=== PATIENT | female | born 1975 | race Caucasian/White ===

== ENCOUNTER 2017-12-10 23:17 | Emergency (ER) | payer MEDICAID ==
--- NOTE | 2017-12-10 23:34 | ED Physician Chart ---
ED Chief Complaint/HPI - Patient Information Date Seen:: 12/10/17 Time Seen:: 23:33 Chief Complaint:: Righ first toe pain History of Present Illness:: 42 yo female had right first toe deformity at the MTP joint for 3 months, right first toe pain due to hyperextension injury for 1 month. 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 Allergies:: Allergies Allergy/AdvReac Type Severity Reaction Status Date / Time No Known Allergies Allergy Verified 01/06/16 17:59 Vitals:: Vital Signs - 8 hr 12/10/17 23:20 Temp 97.9 F HR 88 RR 18 BP 140/90 O2 Sat % 98 ED Review of Systems - Review of Systems General/Constitutional: No fever Skin: No rash Head: No headache Eyes: No pain ENT: No earache Neck: No neck pain Cardio Vascular: No chest pain Pulmonary: No SOB GI: No nausea, No vomiting Musculoskeletal: Bone or joint pain Neurological: No focal symptoms ED Past Medical History - Past Medical History Past Medical History: HTN, DM Social History: Non Smoker, No Alcohol, No Drug Use Surgical History: None Family Medical History - Family Member Mother History Unknown: Yes ED Physical Exam - Physical Examination General/Constitutional: Awake, Alert Head: Atraumatic Eyes: PERRL Skin: No ecchymosis ENMT: Nasal exam nl Neck: No nuchal rigidity Respiratory: Clear to Auscultation Cardio Vascular: RRR, No murmur, gallop, rubs, NL S1 S2 GI: No tenderness/rebounding/guarding Other Extremities comments:: mild to moderate hallux valgus of the first MTP joint. Neuro/Psych: No focal deficits ED Labs/Radiology/EKG Results - Lab Results Results: Laboratory Last Values WBC 9.0 Th/cmm (4.8-10.8) 12/10/17 00:05 RBC 4.88 Mil/cmm (3.80-5.10) 12/10/17 00:05 Hgb 14.4 gm/dL (12-16) 12/10/17 00:05 Hct 42.3 % (41.0-60) 12/10/17 00:05 MCV 86.7 fl (81-100) 12/10/17 00:05 MCH 29.5 pg (27.0-31.0) 12/10/17 00:05 MCHC Differential 34.0 pg (28.0-36.0) 12/10/17 00:05 RDW 11.8 % (11.5-20.0) 12/10/17 00:05 Plt Count 509 Th/cmm (150-400) H 12/10/17 00:05 MPV 7.2 fl 12/10/17 00:05 Neutrophils % 58.0 % (40.0-80.0) 12/10/17 00:05 Lymphocytes % 32.1 % (20.0-50.0) 12/10/17 00:05 Monocytes % 7.0 % (2.0-10.0) 12/10/17 00:05 Eosinophils % 2.2 % (0.0-5.0) 12/10/17 00:05 Basophils % 0.7 % (0.0-2.0) 12/10/17 00:05 Sodium 132 mEq/L (136-145) L 12/10/17 00:05 Potassium 3.6 mEq/L (3.5-5.1) 12/10/17 00:05 Chloride 93 mEq/L (98-107) L 12/10/17 00:05 Carbon Dioxide 27.9 mEq/L (21.0-31.0) 12/10/17 00:05 Anion Gap 14.7 (7.0-16.0) 12/10/17 00:05 BUN 12 mg/dL (7-25) 12/10/17 00:05 Creatinine 0.8 mg/dL (0.6-1.2) 12/10/17 00:05 Est GFR ( Amer) > 60.0 ml/min (>90) 12/10/17 00:05 Est GFR (Non-Af Amer) > 60.0 ml/min 12/10/17 00:05 BUN/Creatinine Ratio 15.0 12/10/17 00:05 Glucose 233 mg/dL (70-105) H 12/10/17 00:05 Hemoglobin A1c % 10.3 % (4.0-6.0) H 18 00:05 Uric Acid 5.4 mg/dL (2.3-6.6) 12/10/17 00:05 Calcium 9.7 mg/dL (8.6-10.3) 12/10/17 00:05 Total Bilirubin 0.3 mg/dL (0.3-1.0) 12/10/17 00:05 AST 23 U/L (13-39) 12/10/17 00:05 ALT 37 U/L (7-52) 12/10/17 00:05 Alkaline Phosphatase 69 U/L (34-104) 12/10/17 00:05 Total Protein 6.9 gm/dL (6.0-8.3) 12/10/17 00:05 Albumin 4.1 gm/dL (3.7-5.3) 12/10/17 00:05 Globulin 2.8 gm/dL 12/10/17 00:05 Albumin/Globulin Ratio 1.5 (1.0-1.8) 12/10/17 00:05 - Radiology Results Results: Right first toe X ray: mild to moderate hallux valgus of the first MTP joint. No acute fracture ED Assessment - Assessment General Assessment: Hallux valgus of right first MTP joint DM II, poorly controlled Assessment/Comments:: Right first toe X ray Tylenol 650mg PO D/c home F/u PCP for better DM II control ED Septic Shock - . Is Septic Shock (SBP<90, OR Lactate>4 mmol\L) present?: No - <6hrs of presentation: Vital Signs: Vital Signs - 8 hr 12/10/17 23:20 Temp 97.9 F HR 88 RR 18 BP 140/90 O2 Sat % 98 ED Reassessment (Disposition) - Reassessment Reassessment Condition:: Improved - Patient Disposition Discharge/Transfer:: Home
[2017-12-11 00:13] LABS: % BASOPHILS 0.7 % (0.0-2.0); % EOSINOPHILS 2.2 % (0.0-5.0); % LYMPHOCYTES 32.1 % (20.0-50.0); BASOPHILE ABSOLUTE 0.1 Th/cumm (0-0.2); EOSINOPHILE ABSOLUTE 0.2 Th/cmm (0.1-0.4); HEMATOCRIT 42.3 % (41.0-60); HEMOGLOBIN 14.4 gm/dL (12-16); LYMPHOCYTE ABSOLUTE 2.9 Th/cmm (1.5-3.0); MEAN CELL VOLUME 86.7 fl (81-100); MEAN CORPUSCULAR HEMOGLOBIN 29.5 pg (27.0-31.0); MEAN PLATELET VOLUME 7.2 fl; MONOCYTE ABSOLUTE 0.6 Th/cmm (0.3-1.0); NEUTROPHILE ABSOLUTE 5.2 Th/cmm (1.8-8.0); PLATELET COUNT 509 Th/cmm (150-400); RED BLOOD COUNT 4.88 Mil/cmm (3.80-5.10); RED CELL DISTRIBUTION WIDTH 11.8 % (11.5-20.0)
[2017-12-11 01:13] LABS: ALB/GLOB RATIO 1.5 (1.0-1.8); ALBUMIN 4.1 gm/dL (3.7-5.3); ALKALINE PHOSPHATASE 69 U/L (34-104); ANION GAP 14.7 (7.0-16.0); BILIRUBIN,TOTAL 0.3 mg/dL (0.3-1.0); BUN - UREA NITROGEN 12 mg/dL (7-25); CALCIUM SERUM 9.7 mg/dL (8.6-10.3); CARBON DIOXIDE 27.9 mEq/L (21.0-31.0); CHLORIDE 93 mEq/L (98-107); CREATININE - SERUM 0.8 mg/dL (0.6-1.2); GFR AFRICAN-AMERICAN > 60.0 ml/min (>90); GFR NON AFRICAN-AMERICAN > 60.0 ml/min; GLUCOSE 233 mg/dL (70-105); POTASSIUM SERUM 3.6 mEq/L (3.5-5.1); SGOT 23 U/L (13-39); SGPT/ALT 37 U/L (7-52); SODIUM SERUM 132 mEq/L (136-145); TOTAL PROTEIN,SERUM 6.9 gm/dL (6.0-8.3); URIC ACID 5.4 mg/dL (2.3-6.6)
--- NOTE | 2017-12-11 08:58 | Diagnostic Imaging Report ---
Right toes 3 views Indication: pain Comparison: none Findings: Moderate hallux valgus is noted with moderate to advanced degenerative changes of first MTP joint. Punctate densities likely calcifications are seen in this region. There is tiny ossicle or small osteophyte along the base of the first distal phalanx. No evidence of acute fracture or significant focal soft tissue swelling. Impression: No evidence of an acute fracture. Moderate to advanced degenerative changes of the first MTP joint with moderate hallux valgus. Punctate densities likely calcifications are seen adjacent to this region. In the setting of trauma, if clinical symptoms persist and there is continued concern for an occult fracture, follow up exams in 5-7 days is suggested.
[2017-12-11 18:53] LABS: A1C % 10.3 % (4.0-6.0)
== END 2017-12-11 01:25 | disposition home or self-care (01) ==
LOC: ER 23:17
DX: M20.11 Hallux valgus (acquired), right foot (principal); E11.9 Type 2 diabetes mellitus without complications; I10 Essential (primary) hypertension
CPT/HCPCS: 36415-UA; 73660-TC-T5; 80053-TC; 83036-90; 84550-TC; 85025-TC; Z7610